=== PATIENT | female | born 1940 | race Caucasian/White ===

== ENCOUNTER 2023-07-08 10:26 | Emergency (ER) | payer OTHER ==
[~2023-07-08] VITALS: Ht 167.6 cm; Wt 77.1 kg
[2023-07-08] MEDS ORDERED: DEXILANT60 MG (10:50)
[2023-07-08] MEDS ORDERED: GABAPENTIN300 M2 (10:51)
== END 2023-07-08 11:55 | disposition home or self-care (01) ==
LOC: ER 10:26
DX: M54.9 Dorsalgia, unspecified (principal)
CPT/HCPCS: 96372; 99284; J1885; J3301